=== PATIENT | female | born 1990 | race African-American/Black ===

== ENCOUNTER 2021-04-13 19:41 | Emergency (ER) | payer SELFPAY | END 2021-04-13 20:00 | disposition home or self-care (01) | LOC: ER 19:54 | DX: Z02.89 Encounter for other administrative examinations (principal); V43.52XA Car driver injured in collision with other type car in traffic accident, initial encounter; Y93.I9 Activity, other involving external motion; Y92.89 Other specified places as the place of occurrence of the external cause; Y99.8 Other external cause status ==